=== PATIENT | male | born 1965 | race Caucasian/White ===

== ENCOUNTER → 2018-05-20 | Outpatient (CLI) | payer OTHER ==
[~2018-05-20] MED LIST: ASPI-515 PO; ASPI325T17 PO; ATOR40TA PO; CHOL10003 PO; CYCL-259 PO; FLAX100029 PO; FLAX10004 PO; HYDR-3245 PO; HYDR-3307 PO; MELO7.5T31 PO; MULT-6 PO; OXYC5CAP2 PO
[2018-05-20 16:16] LABS: MICROSCOPIC NOT IND
[2018-05-20 16:18] LABS: CULTURE INDICATED? NO
[2018-05-20 16:24] LABS: ALANINE AMINOTRANSFERASE 44 U/L (12-78); ALBUMIN 3.6 g/dL (3.4-5.0); ANION GAP 5 mmol/L (5-15); CALCIUM 8.6 mg/dL (8.5-10.1); CHLORIDE 110 mmol/L (98-107); CREATININE 1.12 mg/dL (0.7-1.3)
[2018-05-20 16:26] LABS: ALKALINE PHOSPHATASE 113 U/L (45-117); BILIRUBIN,TOTAL 0.7 mg/dL (0.2-1.0); TOTAL PROTEIN 7.1 g/dL (6.4-8.2)
[2018-05-20 16:36] LABS: BASOPHILS # (AUTO) 0.05 x10^3/uL (0-0.1); BASOPHILS % (AUTO) 1 % (0-1); EOSINOPHILS # (AUTO) 0.13 x10^3/uL (0-0.4); EOSINOPHILS % (AUTO) 2 % (1-7); LYMPHOCYTES # (AUTO) 1.46 x10^3/uL (1-3.4); LYMPHOCYTES % (AUTO) 22 % (22-44); MD NO; MEAN CORPUSCULAR HEMOGLOBIN 31.9 pg (27.5-34.5); MEAN CORPUSCULAR HGB CONC 34.2 g/dL (33.2-36.2); MEAN CORPUSCULAR VOLUME 93.3 fL (81-97); MEAN PLATELET VOLUME 8.2 fL (7.4-10.4); MONOCYTES # (AUTO) 0.55 x10^3/uL (0.2-0.8); MONOCYTES % (AUTO) 8 % (2-9); NEUTROPHILS # (AUTO) 4.37 x10^3/uL (1.8-6.8); NEUTROPHILS % (AUTO) 67 % (42-75); PLATELET COUNT 264 x10^3/uL (130-400); RED BLOOD COUNT 5.04 x10^6/uL (4.38-5.82); RED CELL DISTRIBUTION WIDTH 12.3 % (9.4-14.8)
== END | disposition home or self-care (01) ==
LOC: STAR 15:16
PROVIDERS: ATTEND Orthopaedic Surgery
DX: Z01.818 Encounter for other preprocedural examination (principal); M16.11 Unilateral primary osteoarthritis, right hip
CPT/HCPCS: 36415; 80053; 81003; 85025; 87081; 87147; 93005

== ENCOUNTER 2018-05-30 06:47 | Inpatient (IN) | payer OTHER ==
[~2018-05-30] VITALS: Ht 177.8 cm; Wt 87.2 kg
[2018-05-30] MEDS ORDERED: LACTATED RINGERS 1,000 ML IV SCH (07:17)
[2018-05-30] MEDS ORDERED: SCOPOLAMINE PATCH, 1.5MG PATCH.TD72 TD STA (07:49)
[2018-05-30] MEDS ORDERED: ONDANSETRON ODT 8 MG PO STA (07:49)
[2018-05-30] MEDS ORDERED: ACETAMINOPHEN 500 MG TABLET PO STA (07:49)
[2018-05-30] MEDS ORDERED: GABAPENTIN 300 MG CAPSULE PO STA (07:49)
[2018-05-30] MEDS ORDERED: FENTANYL PF 250 MCG/5ML ONE (07:58)
[2018-05-30] MEDS ORDERED: MIDAZOLAM 1 MG/ML, 2ML ONE (07:58)
[2018-05-30] MEDS ORDERED: ROCURONIUM 10MG/ML,5ML ONE (07:59)
[2018-05-30] MEDS ORDERED: CEFAZOLIN 1,000 MG ONE ×2 (08:00)
[2018-05-30] MEDS ORDERED: LIDOCAINE-MPF 2% ,5ML ONE (08:01)
[2018-05-30] MEDS ORDERED: PROPOFOL 10 MG/ML, 20ML ONE (08:01)
[2018-05-30] MEDS ORDERED: WATER-INJECTION,STERILE 10 ML IV ONE (08:01)
[2018-05-30] MEDS ORDERED: KETOROLAC 60 MG/2 ML ONE (08:42)
[2018-05-30] MEDS ORDERED: SODIUM CHLORIDE 0.9% 100 ML ONE (08:43)
[2018-05-30] MEDS ORDERED: EPINEPHRINE 1 MG/ML, 1ML ONE (08:43)
[2018-05-30] MEDS ORDERED: TRANEXAMIC ACID 100 MG/ML, 10ML ONE (08:43)
[2018-05-30] MEDS ORDERED: ROPIvacaine/PF 0.2%, 20 ML ONE (08:43)
[2018-05-30] MEDS ORDERED: DEXAMETHASONE 4 MG/ML, 1ML ONE ×2 (09:13)
[2018-05-30] MEDS ORDERED: LABETALOL 5MG/ML, 20ML ONE (09:22)
[2018-05-30] MEDS ORDERED: FENTANYL PF 100 MCG/2ML IV PRN (10:00)
[2018-05-30] MEDS ORDERED: MEPERIDINE/PF 25MG/0.5ML IVPush PRN (10:00)
[2018-05-30] MEDS ORDERED: HALOPERIDOL 5 MG/ML IV PRN (10:00)
[2018-05-30] MEDS ORDERED: hydrALAzine 20 MG/ML, 1ML IV PRN (10:00)
[2018-05-30] MEDS ORDERED: PROMETHAZINE 25 MG/ML, 1ML IV PRN (10:00)
[2018-05-30] MEDS ORDERED: LABETALOL 5MG/ML, 20ML IV PRN (10:00)
[2018-05-30] MEDS ORDERED: OXYcodone 5 MG/5 ML ORAL.SOL UDC PO PRN (10:00)
[2018-05-30] MEDS ORDERED: FENTANYL PF 100 MCG/2ML ONE ×2 (10:52→11:59)
[2018-05-30] MEDS ORDERED: PROMETHAZINE 25 MG/ML, 1ML IM PRN (11:00)
[2018-05-30] MEDS ORDERED: DIAZEPAM 5 MG TABLET PO PRN (11:00)
[2018-05-30] MEDS ORDERED: MAGNESIUM HYDROXIDE 8%, 30ML UDC PO PRN (11:00)
[2018-05-30] MEDS ORDERED: ALUMINUM/MAG/SIMETHICONE 30 ML UDC PO PRN (11:00)
[2018-05-30] MEDS ORDERED: BISACODYL 10 MG SUPP PR PRN (11:00)
[2018-05-30] MEDS ORDERED: ONDANSETRON 4 MG TABLET PO PRN (11:00)
[2018-05-30] MEDS ORDERED: DIPHENHYDRAMINE 50 MG CAPSULE PO PRN (11:00)
[2018-05-30] MEDS ORDERED: PROMETHAZINE 12.5 MG SUPP PR PRN (11:00)
[2018-05-30] MEDS ORDERED: ZOLPIDEM 5MG TABLET PO PRN (11:00)
[2018-05-30] MEDS ORDERED: ONDANSETRON 2MG/ML, 2ML IV PRN (11:00)
[2018-05-30] MEDS ORDERED: SENNA/DOCUSATE TABLET PO PRN (11:00)
[2018-05-30] MEDS ORDERED: ACETAMINOPHEN 650 MG/20.3 ML UDC PO PRN (11:00)
[2018-05-30] MEDS ORDERED: HYDROcodone/APAP 10/325 MG TABLET PO PRN (11:00)
[2018-05-30] MEDS ORDERED: HYDROmorphone 1 MG/ML, 1ML IV PRN (11:00)
[2018-05-30] MEDS ORDERED: HYDROmorphone 2 MG/ML, 1ML ONE (11:12)
[2018-05-30] MEDS: HYDROmorphone 1 MG/ML, 1ML IV PRN ×3 (11:15→11:47)
[2018-05-30] MEDS ORDERED: TAMSULOSIN 0.4 MG CAP.ER.24H PO SCH (11:15)
[2018-05-30] MEDS ORDERED: TRANEXAMIC ACID 1,000 MG in SODIUM CHLORIDE 0.9% 100 ML IVPB ONE (11:15)
[2018-05-30] MEDS ORDERED: MEPERIDINE/PF 50 MG/ML ONE (11:18)
[2018-05-30] MEDS ORDERED: OXYcodone 5 MG/5 ML ORAL.SOL UDC ONE (11:19)
[2018-05-30] MEDS ORDERED: KETOROLAC 30 MG/1 ML IV SCH (12:30)
[2018-05-30] MEDS: D5%-0.45% NACL 1,000 ML IV SCH ×2 (13:00→18:00)
[2018-05-30 16:00] VITALS: BP 117/71
[2018-05-30] MEDS ORDERED: CEFAZOLIN 2,000 MG in DEXTROSE 5% 50 ML IVPB SCH (16:30)
[2018-05-30] MEDS ORDERED: OXYC5CAP2 PO (17:35)
[2018-05-30 18:48] VITALS: BP 126/79
[2018-05-30] MEDS ORDERED: ASPIRIN 81 MG TABLET EC PO SCH (21:00)
[2018-05-30] MEDS ORDERED: ATORVASTATIN 40 MG TABLET PO SCH (21:00)
[2018-05-30] MEDS ORDERED: DOCUSATE 100 MG CAPSULE PO SCH (21:00)
[2018-05-31] MEDS ORDERED: ASPIRIN 81 MG TABLET EC PO SCH (06:00)
[2018-05-31] MEDS ORDERED: DEXAMETHASONE 4 MG/ML, 1ML IVPush SCH (06:00)
[2018-05-31] MEDS ORDERED: MULTIVITAMINS/MINERALS TABLET PO SCH (09:00)
[2018-05-31] MEDS ORDERED: CYCLOBENZAPRINE 10 MG TABLET PO SCH (09:00)
[2018-05-31] MEDS ORDERED: KETOROLAC 30 MG/1 ML IV SCH (11:00)
== END 2018-05-30 19:13 | disposition home or self-care (01) | DRG 470 ==
LOC: ORIP 06:47 → 4NOR 12:07
PROVIDERS: ADMIT Orthopaedic Surgery; ATTEND Orthopaedic Surgery
PROC: 0SR906A Replacement of Right Hip Joint with Oxidized Zirconium on Polyethylene Synthetic Substitute, Uncemented, Open Approach (ICD-10-PCS; principal; 2018-05-30 09:45)
DX: M16.11 Unilateral primary osteoarthritis, right hip (principal); E78.5 Hyperlipidemia, unspecified; G89.29 Other chronic pain; Z87.891 Personal history of nicotine dependence; Q65.89 Other specified congenital deformities of hip
CPT/HCPCS: 36415; 86850; 86900; C1713; G0378; J0171; J0690; J1100; J1170; J1885; J2175; J2250; J2704; J2795; J3010; J3490; Q0162; C1776; J7120